=== PATIENT | male | born 2000 | race Caucasian/White ===

== ENCOUNTER 2020-01-15 13:04 | Emergency (ER) | payer OTHER ==
[2020-01-15 12:58] VITALS: TEMP 99.1
[2020-01-15 15:26] VITALS: BP 120/76; PULSE 71
== END 2020-01-15 15:28 | disposition home or self-care (01) ==
LOC: COL.ER 13:04
DX: J02.9 Acute pharyngitis, unspecified (principal); R50.9 Fever, unspecified; R51 Headache; R19.7 Diarrhea, unspecified; R11.0 Nausea; Z20.828 Contact with and (suspected) exposure to other viral communicable diseases